=== PATIENT | female | born 1940 | race Caucasian/White ===

== ENCOUNTER → 2016-12-09 | Day surgery (SDC) | payer OTHER, MEDICARE ==
[~2016-12-09] VITALS: Ht 152.4 cm; Wt 45.8 kg
[~2016-12-09] MED LIST: ALENDRONATE SOD70 M2 PO; LEVOTHYROXINE75 MCG PO; LIPITOR10 M1 PO
--- NOTE | 2016-12-09 12:28 | Operative Report ---
Operative/Inv Procedure Report Surgery Date: 12/09/16 Name of Procedure: Cataract extraction lens implantation correction of presbyopia left eye Pre-Operative Diagnosis: Age-related cataract and presbyopia left eye 20/25 vision 20/60 glare vision Post-Operative Diagnosis: Same Estimated Blood Loss: none Surgeon/Asset Protection Specialist: TREVOR HARRIS MD Anesthesia: local monitored anesthesi Complications: None Operative/Procedure Note Note: The patient was brought to the operating room standard monitoring equipment was attached the patient was prepped and draped in the usual fashion for intraocular surgery. A lid speculum was placed to retract the lids. The case was begun by making 2 partial-thickness corneal relaxing incisions at 165. A temporal incision with a 2.4 mm keratome. The eye was stabilized with a Mcmahon ring during this incision. 1 mL of non-preserved lidocaine was introduced into the anterior chamber to provide anesthesia. The anterior chamber was then filled and deepened with viscoelastic. A curvilinear capsulorrhexis was achieved using a 30-gauge needle and is a cystotome and capsulorrhexis was finished using a Utrata forceps. A second or paracentesis incision was made temporally with a 1 mm MVR blade. The lens was then hydrodissected with balanced salt solution and found to be rotatable. The lens was emulsified using phacoemulsification and a modified four-quadrant cracking technique. The residual cortical material was removed using automated irrigation and aspiration and as much of the anterior capsular rim was cleaned as well as possible. The posterior capsule was cleaned first with the automated machine on a low setting and then manually with a Barak squeegee. The capsular bag was deepened with viscoelastic. The lens a Technis multifocal ZLB00 13.0 Diopter placed into the bag under direct visualization and rotated so that the haptics were at 12 and 6:00. Viscoelastic was then removed from the eye by flushing it out and then by automated irrigation and aspiration. The eye was pressurized to a normal tone. 1/10 of a cc of vancomycin solution was introduced into the anterior chamber to provide antibiotic prophylaxis. The wounds were sealed by hydrating the stroma adjacent to them and the eye was left at a proper tone after the wounds were checked and found not to be leaking. The lid speculum was removed from the orbit. Antibiotic and steroid drops were placed on the eye and then the eye was shielded. Monitoring equipment was removed from the patient and the patient was removed from the operative suite to the holding area. The patient tolerated the procedure well and will be seen in the office tomorrow.
== END ==
LOC: STS 01:23
DX: H25.9 Unspecified age-related cataract (principal); H52.4 Presbyopia; E03.9 Hypothyroidism, unspecified; M19.90 Unspecified osteoarthritis, unspecified site
CPT/HCPCS: J2250; V2632; V2788-GY

== ENCOUNTER → 2016-12-22 | Day surgery (SDC) | payer OTHER, MEDICARE ==
[~2016-12-22] VITALS: Ht 152.4 cm; Wt 45.8 kg
--- NOTE | 2016-12-22 12:30 | Operative Report ---
Operative/Inv Procedure Report Surgery Date: 12/22/16 Name of Procedure: Cataract extraction lens implantation correction of astigmatism right eye Pre-Operative Diagnosis: Age-related cataract presbyopia and astigmatism right eye 20/30 vision 20/70 glare vision Post-Operative Diagnosis: Same Estimated Blood Loss: none Surgeon/Wide Load Escort: TREVOR HARRIS MD Anesthesia: local monitored anesthesi Complications: None Operative/Procedure Note Note: Patient was brought to the operating room and standard monitoring equipment was attached. The patient was prepped and draped in the usual fashion for sterile intraocular surgery. The eye had been marked at 12 and 9 o'clock in the holding area and then the eye was marked on the table to indicate 8 on the cornea. The eye was stabilized with a Mcmahon ring and the anterior chamber was entered using a 2.4 mm keratome temporally. A small amount of non-preserved lidocaine was introduced into the anterior chamber to provide anesthesia. The anterior chamber was then deepened with viscoelastic. A temporal paracentesis entrance into the eye was made with a 1 mm MVR blade. A curvilinear capsulorrhexis was started with a 30-gauge needle bent as a cystotome and finished with a Utrata forceps. The lens was hydrodissected using balanced salt solution through a 26- gauge cannula. The lens was found to be rotatable and was then emulsified using a four-quadrant divide and conquer technique. Residual cortical material was removed using automated irrigation and aspiration. The posterior capsule was polished first with the machine on [place]i setting and then with a Barak squeegee. The capsular bag was re-deepened with viscoelastic. The lens an Technis Symfony Toric ZXT 375 14.5 D toric lens was placed into the capsular bag under direct visualization and rotated so that the markings on the lens corresponded with the previously marked cornea. The residual viscoelastic was removed using automated irrigation and aspiration. Anterior chamber was reinflated with balanced salt solution. The main wound was sealed shut using balanced salt solution. 1/10 of a cc of vancomycin solution was placed into the eye through the paracentesis site. The eye was checked and found to be in adequate tone in the paracentesis site was sealed. The lid speculum was removed from the eye. The draping and monitoring equipment was removed from the patient who was then removed from the operating room in stable condition and brought to same-day surgery. Patient tolerated the procedure well and will be seen in the office tomorrow.
== END ==
LOC: STS 02:05
DX: H25.9 Unspecified age-related cataract (principal); H52.4 Presbyopia; H52.201 Unspecified astigmatism, right eye
CPT/HCPCS: J2250; V2632